=== PATIENT | female | born 1990 | race Caucasian/White ===

== ENCOUNTER 2024-02-25 00:36 | Emergency (ER) | payer OTHER, SELFPAY ==
--- NOTE | ~2024-02-25 | CT_ITS ---
EXAMINATION: CT HEAD WITHOUT CONTRAST CT CERVICAL SPINE WITHOUT CONTRAST CLINICAL INFORMATION: Trauma. Pain. COMPARISON: None. TECHNIQUE: Contiguous axial imaging was performed through the head and cervical spine without intravenous administration of contrast. Sagittal and coronal reformatted images also obtained. This CT examination was performed using dose optimization techniques as appropriate, variously including the following: *Automated exposure control *Adjustment of mA and/or kV according to patient size (this includes techniques or standardized protocols for targeted exams where dose is matched to indication/reason for exam; i.e. extremities or head) *Use of iterative reconstruction technique DLP: 1347 mGy-cm FINDINGS: The lateral, third and fourth ventricles are normally outlined. The cortical sulci and basal cisterns are normally outlined as well. There is no acute territorial defect, hemorrhage or midline shift. There is a partially empty sella. Calvarium/scalp: Intact. Maxillofacial sinuses and mastoids: Clear as visualized. Cervical spine: The alignment is normal. There is mild C6-7 degenerative change with osteophyte formation. Spinal canal and neuroforamen are patent. The bone mineralization is normal. There is no fracture. The soft tissues are unremarkable. CT/CT cervical spine wo IV con IMPRESSION: 1. No acute intracranial pathology. 2. No acute cervical spine abnormality. Electronically signed by: Andrew Kothari MD 02/25/2024 03:01 AM [facility]
--- NOTE | ~2024-02-25 | CT_ITS ---
EXAMINATION: CT HEAD WITHOUT CONTRAST CT CERVICAL SPINE WITHOUT CONTRAST CLINICAL INFORMATION: Trauma. Pain. COMPARISON: None. TECHNIQUE: Contiguous axial imaging was performed through the head and cervical spine without intravenous administration of contrast. Sagittal and coronal reformatted images also obtained. This CT examination was performed using dose optimization techniques as appropriate, variously including the following: *Automated exposure control *Adjustment of mA and/or kV according to patient size (this includes techniques or standardized protocols for targeted exams where dose is matched to indication/reason for exam; i.e. extremities or head) *Use of iterative reconstruction technique DLP: 1347 mGy-cm FINDINGS: The lateral, third and fourth ventricles are normally outlined. The cortical sulci and basal cisterns are normally outlined as well. There is no acute territorial defect, hemorrhage or midline shift. There is a partially empty sella. Calvarium/scalp: Intact. Maxillofacial sinuses and mastoids: Clear as visualized. Cervical spine: The alignment is normal. There is mild C6-7 degenerative change with osteophyte formation. Spinal canal and neuroforamen are patent. The bone mineralization is normal. There is no fracture. The soft tissues are unremarkable. CT/CT head/brain wo IV con IMPRESSION: 1. No acute intracranial pathology. 2. No acute cervical spine abnormality. Electronically signed by: Andrew Kothari MD 02/25/2024 03:01 AM [facility]
[2024-02-25 00:44] VITALS: BP 138/96; PULSE 101; RESP 16; TEMP 36.5; O2SAT 97
[2024-02-25 00:47] VITALS: BMI 34.5
[2024-02-25] MEDS: Lidocaine/Epineph/Tetracaine 3 ML GEL.PF.APP TOPICAL (00:58)
--- NOTE | 2024-02-25 01:06 | PC.NURSE ---
Pt continuing to manipulate c-collar with removal. Lac to posterior head cleansed. Much smaller lac noted than previously stated by EMS. LET applied. Bleeding controlled.
--- OUTSIDE RECORDS SUMMARY | 2024-02-25 01:16 | XMS_ITS | Continuity of Care Document ---
Author Organization [facility] Address [address] [place] [address]- Care Team Providers Care Welcome Wagon Host/Hostess Name Role Phone Urmila Li MD Primary Care Physician Encounter [facility] Date(s): 01/08/24 - 02/07/[address] [address]- Encounter Type: Triage Allergies, Adverse Reactions, Alerts Substance Criticality Severity Reaction Reaction Severity Status penicillin Active Medications Alcohol Pads See Instructions, # 200 each, Refills 5, Tot. Refills 5, Maintenance, Use to check blood glucose three times during the day and once at bedtime for management of Type 2 Diabetes (E11.9), 10/30/23 11:12:00 AM EDT, Supply, 160, cm, 10/26/23 5:38:00 EDT, Height, 76.1, kg, 10/26/23 5:38:00 EDT, Dry Weight Start Date: 10/30/23 Stop Date: 04/27/24 Status: Ordered Quantity: 200.0 Unit: each Repeat number: 6 Ambulator BP Monitor and Cuff Ambulator BP Monitor and Cuff, See Instructions, # 1 each, Refills 0, Tot. Refills 0, Maintenance, Use daily to check BP. ICD10: I10, R03.0, 11/11/23 12:45:00 PM EDT, Supply Start Date: 11/11/23 Status: Ordered Quantity: 1.0 Unit: each Repeat number: 1 Indication: Elevated blood-pressure reading, without diagnosis of hypertension atorvastatin 40 mg oral tablet 1 tablet = 40 mg, By Mouth, Daily, # 90 tablet, 5 Refills, Maintenance, 9/5/24 8:47:00 AM EDT, Tablet, [facility] #[id number], Partial fill upon patient request if the prescription is for a schedule II opioid drug., 160, cm, 11/11/23 8:46:00 EDT, Height, 76.1, kg, 10/26/23 5:38:00 EDT, Dry Weight Start Date: 11/12/23 Status: Ordered Quantity: 90.0 Unit: tablet Repeat number: 6 Dexcom G7 Sensor Dexcom G7 Sensor, See Instructions, # 3 each, Refills 11, Tot. Refills 11, Maintenance, Use daily to check sugar. Change every 10 days. ICD10: E11.65 COSME: 99, 11/11/23 10:35:00 AM EDT, PA approved on covermymeds, Supply, 160, cm, 11/11/23 8:46:00 EDT, Height, 76.1, kg, 10/26/23 5:38:00 EDT, Dry Weight Start Date: 11/11/23 Status: Ordered Quantity: 3.0 Unit: each Repeat number: 12 Indication: Type 2 diabetes mellitus without complications famotidine 20 mg oral tablet 20 mg, 1, tablet, By Mouth, 2 times a day, # 60 tablet, Refills 0, Tot. Refills 0, Maintenance, 10/30/23 11:22:00 AM EDT, Route to Pharmacy Electronically, [facility], Partial fill upon patient request if the prescription is for a schedule II opioid drug., 160, cm, 10/26/23 5:38:00 EDT, Height, 76.1, kg, 10/26/23 5:38:00 EDT, Dry Weight Start Date: 10/30/23 Stop Date: 11/29/23 Status: Ordered Quantity: 60.0 Unit: tablet Repeat number: 1 folic acid 1 mg oral tablet 1 mg, By Mouth, Daily, # 30 tablet, Refills 0, Tot. Refills 0, Maintenance, 12/20/22 8:58:00 AM EDT, Route to Pharmacy Electronically, [facility][id number], Partial fill upon patient request if the prescription is for a schedule II opioid drug., 157, cm, 07/20/22 3:25:00 EDT, Height, 85, kg,07/19/22 18:14:00 EDT, Dry Weight Start Date: 12/20/22 Status: Ordered Quantity: 30.0 Unit: tablet Repeat number: 1 Freestyle Lite Lancets See Instructions, # 200 each, Refills 5, Tot. Refills 5, Maintenance, Use to check blood glucose three times during the day and once at bedtime for management of Type 2 Diabetes (E11.9), 10/30/23 11:11:00 AM EDT, Supply, 160, cm, 10/26/23 5:38:00 EDT, Height, 76.1, kg, 10/26/23 5:38:00 EDT, Dry Weight Start Date: 10/30/23 Stop Date: 04/27/24 Status: Ordered Quantity: 200.0 Unit: each Repeat number: 6 Freestyle Lite Monitor See Instructions, # 1 each, Refills 0, Tot. Refills 0, Maintenance, Use to check blood glucose three times during the day and once at bedtime for management of Type 2 Diabetes (E11.9), 10/30/23 11:11:00 AM EDT, Supply, 160, cm, 10/26/23 5:38:00 EDT, Height, 76.1, kg, 10/26/23 5:38:00 EDT, Dry Weight Start Date: 10/30/23 Stop Date: 11/29/23 Status: Ordered Quantity: 1.0 Unit: each Repeat number: 1 Freestyle Lite Test Strips See Instructions, # 200 each, Tot. Refills 5, Maintenance, Use to check blood glucose three times during the day and once at bedtime for management of Type 2 Diabetes (E11.9), 10/30/23 11:11:00 AM EDT, Supply, 160, cm, 10/26/23 5:38:00 EDT, Height, 76.1, kg, 10/26/23 5:38:00 EDT, Dry Weight Start Date: 10/30/23 Stop Date: 11/29/23 Status: Ordered Quantity: 200.0 Unit: each Repeat number: 6 Glucagon Emergency Kit See Instructions, PRN, # 2 each, Refills 3, Tot. Refills 3, Maintenance, Blood Glucose, Use to for correction of blood sugar less than 70 for management of Type 2 Diabetes (E11.9), 10/30/23 11:12:00 AM EDT, Supply, 160, cm, 10/26/23 5:38:00 EDT, Height, 76.1, kg, 10/26/23 5:38:00 EDT, Dry Weight Start Date: 10/30/23 Stop Date: 02/27/24 Status: Ordered Quantity: 2.0 Unit: each Repeat number: 4 Insulin Glargine Solostar Pen 100 units/mL subcutaneous solution = 24 units, Subcutaneous Injection, Daily in AM, # 10 mL, 0 Refills, Maintenance, 10/30/23 12:23:00 PM EDT, [facility], Partial fill upon patient request if the prescription is for a schedule II opioid drug., 160, cm, 10/26/23 5:38:00 EDT, Height, 76.1, kg, 10/26/23 5:38:00 EDT, Dry Weight Start Date: 10/30/23 Status: Ordered Quantity: 10.0 Unit: mL Repeat number: 1 Insulin Lispro KwikPen 100 units/mL injectable solution See Instructions, << Sliding Scale Comments >> 100 - 149 6 units 150 - 199 8 units 200 - 249 10 units 250 - 299 12 units 300 - 349 14 units 350 - 399 16 units Call if less than 70 Call ifgreater than 400 << Sliding Scale Comments >>, # 10 mL, 0 Refills, Maintenance, 10/30/2411:24:00 PM EDT, [facility], Partial fill upon patient request if the prescription isfor a schedule II opioid drug., 160, cm, 10/26/23 5:38:00 EDT, Height, 76.1, kg, 10/26/23 5:38:00 EDT, Dry Weight Start Date: 10/30/23 Status: Ordered Quantity: 10.0 Unit: mL Repeat number: 1 metFORMIN 500 mg oral tablet 1 tablet = 500 mg, By Mouth, Daily, with meals, # 30 tablet, 0 Refills, Maintenance, 07/19/22 9:33:00 PM EDT, Tablet, Partial fill upon patient request if the prescription is for a schedule II opioid drug. Start Date: 07/19/22 Status: Ordered Quantity: 30.0 Unit: tablet Repeat number: 1 naltrexone 50 mg oral tablet 1 tablet = 50 mg, By Mouth, Daily, # 90 tablet, 1 Refills, Maintenance, 11/11/23 9:17:00 AM EDT, Tablet, [facility] #[id number], Partial fill upon patient request if the prescription is for a schedule II opioid drug., 160, cm, 11/11/23 8:46:00 EDT, Height, 76.1, kg, 10/26/23 5:38:00 EDT, Dry Weight Start Date: 11/11/23 Status: Ordered Quantity: 90.0 Unit: tablet Repeat number: 2 Pen [place], 31 G x 5 mm BD Ultra Fine III See Instructions, # 100 each, Refills 5, Tot. Refills 5, Maintenance, Use for administration of Insulin three times during the day and once at bedtime for management of Type 2 Diabetes (E11.9), 10/30/23 11:11:00 AM EDT, Supply, 160, cm, 10/26/23 5:38:00 EDT, Height, 76.1, kg, 10/26/23 5:38:00 EDT, Dry Weight Start Date: 10/30/23 Stop Date: 04/27/24 Status: Ordered Quantity: 100.0 Unit: each Repeat number: 6 Problem List Condition Confirmation Course Effective Dates Status H ealth Status Informant Alcohol use disorder in remission Confirmed Active Hyperlipidemia Confirmed Active Hypertension Confirmed Active Type 2 diabetes mellitus Confirmed Active Social History Social History Type Response Smoking Status Never (less than 100 in lifetime) entered on: 05/19/23 Sex Sex Representation Female (finding) Patient Care team information Care Team Personnel Name: Lidia Fernandez LPN Position: S RN Member Role: Primary Care Nurse Name: Agustina Davis RN Position: S RN Member Role: Primary Care Nurse Name: Norberto Whitney RN Position: S RN Member Role: Primary Care Nurse Name: Kathy Travis RN Position: S RN Member Role: Primary Care Nurse Name: Urmila Li MD Position: S Resident Member Role: PCP Address: [address] [place], [place] [address] Telecom: Name: Holli Spain RN Position: [facility] RN Member Role: Primary Care Nurse Name: Bertha Alfaro RN Position: [facility] RN Member Role: Primary Care Nurse Name: Luz Maria Piña RN Position: [facility] OB RN Member Role: Primary Care Nurse Name: Vera Iglesias RN Position: [facility] RN Member Role: Primary Care Nurse Name: Torrie Velazquez RN Position: [facility] RN Member Role: Primary Care Nurse Care Team Related Persons Name: KATELYN HERRERA Name: KATELYN GAXIOLA Name: ALIYAH COLE Insurance Providers Guarantor name: [facility] Plan Information #: 1 Payer: [facility] Member Number: NA Policy Number: NA Group Number: NA
--- OUTSIDE RECORDS SUMMARY | 2024-02-25 01:16 | XMS_ITS | Continuity of Care Document ---
Author Organization [facility] Address [address] [place] [address]- Care Team Providers Care Sieve Maker Name Role Phone Urmila Li MD Primary Care Physician [phone] Encounter [facility] ACCT R [id number] Date(s): 01/04/24 - 02/03/[address] [address]- Attending Physician: Edna Juan Admitting Physician: AdmEdna meyers Referring Physician: tr ArPolo Encounter Type: Triage Allergies, Adverse Reactions, Alerts [...] Daily, # 90 tablet, 5 Refills, Maintenance, 11/12/23 8:47:00 AM EDT, Tablet, [email or web address] #[id number], Partial fill upon patient request if the [...] 11:22:00 AM EDT, Route to Pharmacy Electronically, [facility], Partial fill upon patient request if [...] 8:58:00 AM EDT, Route to Pharmacy Electronically, [facility] #[id number], Partial fill upon patient request if the [...] 0 Refills, Maintenance, 10/30/23 12:23:00 PM EDT, [facility], Partial fill upon patient [...] mL, 0 Refills, Maintenance, 10/30/2411:24:00 PM EDT, [facility], Partial fill upon patient request if [...] Refills, Maintenance, 11/11/23 9:17:00 AM EDT, Tablet, [facility] #[id number], Partial fill upon patient request if the prescription is for a schedule II opioid drug., 160, cm, 11/11/23 8:46:00 EDT, Height, 76.1, kg, 10/26/23 5:38:00 EDT, Dry Weight Start Date: 11/11/23 Status: Ordered Quantity: 90.0 Unit: tablet Repeat number: 2 Pen [place], 31 G x 5 mm BD Ultra [...] Position: S Resident Member Role: PCP Address: [address] [place] [address] Telecom: Name: Holli Spain RN Position: S RN Member Role: Primary Care Nurse Name: Bertha Alfaro RN Position: S RN Member Role: Primary Care Nurse Name: Luz Maria Piña RN Position: [facility] OB RN Member Role: Primary Care Nurse Name: Vera Iglesias RN Position: S RN Member Role: Primary Care Nurse Name: Torrie Velazquez RN Position: S RN Member Role: Primary Care Nurse Care Team Related Persons Name: KATELYN HERRERA Name: KATELYN GAXIOLA Name: ALIYAH COLE Insurance Providers Guarantor name: [facility] Plan Information #: 1 Payer: [facility] Member Number: NA Policy Number: NA Group Number: NA
--- NOTE | 2024-02-25 01:28 | ED.HEATRA ---
HPI - Head Injury General Chief complaint: Head Injury Stated complaint: Fall H/S Etoh 1 inch Lac Bleeding controled Time Seen by Provider: 02/25/24 01:19 Source: patient Mode of arrival: EMS Limitations: no limitations History of Present Illness ED Provider: HPI Narrative: Patient intoxicated had 1 pt of vodka earlier was walking to the bathroom tripped on her crocs fell in the bath hitting her back of the head to the top bathtub with superficial laceration to the occipital area no other injuries noticed patient is alert oriented x3 at this time no seizures Related Data Allergies Allergy/AdvReac Type Severity Reaction Status Date / Time penicillin V Allergy Unknown Anaphylaxis Verified 02/25/24 00:50 -PolymyxinB Review of Systems Review of Systems: Yes all other systems are reviewed and are negative [facility] Social History Social History Alcohol intake: current Alcohol intake frequency: a few times a month Alcohol type: hard liquor Smoked in Last 30 Days: No Use of substances other than those prescribed or required for medical reasons: Yes Substance Use Type: Marijuana Substance Use Frequency: Weekly Advance Directives: No Advance Directives Information Provided: Yes Do you have a plan to hurt others: No Plan Physical Exam Vital Signs: Vital Signs: Last Vital Signs Temp 98.1 F 02/25/24 03:28 Pulse 88 02/25/24 03:28 Resp 16 02/25/24 03:28 BP 144/85 H 02/25/24 03:28 Pulse Ox 96 02/25/24 03:28 O2 Del Method Room Air 02/25/24 03:28 BMI result Body Mass Index 34.5 Appearance: Alert. Oriented X3. No acute distress. Intoxicated Eyes: PERRLA, No Nystagmus ENT: Pharynx normal. Oral Mucosa moist superficial 0.5 cm laceration of the occipital area Neck: Normal inspection. Neck supple. CVS: Normal heart rate and rhythm. Pulses normal. Respiratory: No respiratory distress. Equal air entry bilateral, no wheezing/rales/rhonchi Abdomen: Soft and nontender. Bowel sounds are present, no mass palpable, no CVA tenderness Skin: Skin warm and dry. Normal skin color. Normal skin turgor. Extremities: No lower extremity edema. No calf tenderness Neuro: Oriented X 3. No motor deficit. No sensory deficit.No cerebellar signs , cranial nerves II-XII intact Medications Administered Discontinued Medications Generic Name Dose Route Start Last Admin Trade Name Erik PRN Reason Stop Dose Admin Lidocaine/Epinephrine/Tetracaine 3 ml 02/25/24 00:52 02/25/24 00:58 Lidocaine/Epineph/Tetracaine 3 Ml Gel.Pf.Lexi TOPICAL 02/25/24 00:53 3 ml ONCE ONE Administration Protocol Medical Decision Making Medical Decision Making [facility] Narrative: 06:00 Patient intoxicated with superficial laceration to the scalp head CT and C-spine CT negative laceration stapled patient's ETOH level was 434 patient has no feeling much better ambulatory in steady gait in the ER on does not want any help for alcoholism will discharge patient home Differential Diagnosis Differential Diagnoses: The differential diagnosis associated with the presentation includes Lab Data [facility] Lab Attestation statement: I reviewed the patient's lab results. 02/25/24 01:25 02/25/24 01:25 Labs: Lab Results 02/25/24 Range/Units 01:25 WBC 5.4 (4.8-10.8) X10*3/uL RBC 3.96 L (4.20-5.50) X10*6/uL Hgb 14.1 (12.0-16.0) g/dl Hct 40.8 (37.0-47.0) % MCV 103.0 H (80.0-98.0) fL MCH 35.6 H (27.0-33.0) pg MCHC 34.6 (31.0-35.0) g/dl RDW 13.0 (11.0-16.0) % Plt Count 209 (160-400) X10*3/uL MPV 9.3 L (9.4-12.3) fL Immature Gran % (Auto) 0.6 H (0.0-0.4) % Neut % (Auto) 29.8 L (45-73) % Lymph % (Auto) 53.0 H (20-40) % Wells % (Auto) 13.5 H (2-11) % Eos % (Auto) 2.2 (0-4) % Baso % (Auto) 0.9 (0-2) % Lymph # (Auto) 2.9 (1.2-4.9) X10*3/uL Wells # (Auto) 0.7 (0.1-1.2) X10*3/uL Eos # (Auto) 0.1 (0.0-0.4) X10*3/uL Baso # (Auto) 0.1 (0.0-0.2) X10*3/uL Abs Immat Gran (auto) 0.03 (0.00-0.03) X10*3/uL Absolute Neuts (auto) 1.6 L (2.0-8.3) x10*3/uL Absolute Nucleated RBC 0.000 (0.0-0.012) X10*3/uL Nucleated RBC % (auto) 0.0 (0.0-0.2) /100WBC Sodium 148 H (135-145) mmol/L Potassium 3.7 (3.3-5.1) mmol/L Chloride 108 (96-108) mmol/L Carbon Dioxide 23 (22-29) mmol/L Anion Gap 21 H (12-20) BUN 16 (9-16) mg/dL Creatinine 0.68 (0.5-1.4) mg/dL Estim Creat Clear Calc 127.6 Estimated GFR > 60 Random Glucose 128 H (60-115) mg/dL Calcium 9.0 (8.4-10.2) mg/dL Beta HCG, Quant < 2 mIU/mL Ethyl Alcohol 434 H* mg/dL Discharge Plan Discharge Clinical Impression: Closed head injury, Alcohol abuse with intoxication Patient Disposition: Home, Self-Care Instructions: Head Injury (ED), Alcohol Intoxication (ED) Additional Instructions: Stop drinking alcohol Care and cautions as advised You had 2 tena placed on the occipital area Staple removal in 7-10 days Print Language: [place] Citizen
[2024-02-25 01:30] LABS: MANUAL DIFF FLAG NO
[2024-02-25 01:34] LABS: Basophils Absolute Auto 0.1 X10*3/uL (0.0-0.2); Basophils Percent Auto 0.9 % (0-2); Eosinophils Absolute Auto 0.1 X10*3/uL (0.0-0.4); Eosinophils Percent Auto 2.2 % (0-4); Hematocrit 40.8 % (37.0-47.0); Hemoglobin 14.1 g/dl (12.0-16.0); Imm Gran Abs Auto 0.03 X10*3/uL (0.00-0.03); Imm Gran Pct Auto 0.6 % (0.0-0.4); Lymphocytes Absolute Auto 2.9 X10*3/uL (1.2-4.9); Mean Corpuscular HGB Conc 34.6 g/dl (31.0-35.0); Mean Corpuscular Hemoglobin 35.6 pg (27.0-33.0); Mean Platelet Volume 9.3 fL (9.4-12.3); Monocytes Absolute Auto 0.7 X10*3/uL (0.1-1.2); Monocytes Percent Auto 13.5 % (2-11); Neutrophils Absolute Auto 1.6 x10*3/uL (2.0-8.3); Neutrophils Percent Auto 29.8 % (45-73); Platelet Count 209 X10*3/uL (160-400); Red Blood Count 3.96 X10*6/uL (4.20-5.50); White Blood Count 5.4 X10*3/uL (4.8-10.8)
[2024-02-25 02:03] LABS: Anion Gap 21 (12-20); Blood Urea Nitrogen 16 mg/dL (9-16); Carbon Dioxide 23 mmol/L (22-29); Chloride 108 mmol/L (96-108); Creatinine Clr Calc Pharmacy 127.6; Estimated Glomerular Filt Rate > 60; Ethanol 434 mg/dL; Glucose Random 128 mg/dL (60-115); HCG Quantitative < 2 mIU/mL; Potassium 3.7 mmol/L (3.3-5.1); Sodium 148 mmol/L (135-145)
[2024-02-25 03:28] VITALS: BP 144/85; PULSE 88; RESP 16; TEMP 36.7; O2SAT 96
[2024-02-25 06:14] VITALS: BP 171/87; PULSE 100; RESP 16; TEMP 36.7; O2SAT 98
--- NOTE | 2024-02-25 06:16 | PC.NURSE ---
This RN only reviewed discharge instructions with pt. pt verbalized understanding, proper education of stable care.
== END 2024-02-25 06:16 | disposition home or self-care (01) ==
PROVIDERS: Emergency Medicine; Emergency Provider Internal Medicine; PCP Pediatrics
DX: F10.120 Alcohol abuse with intoxication, uncomplicated (principal); Y90.8 Blood alcohol level of 240 mg/100 ml or more; S09.90XA Unspecified injury of head, initial encounter; S01.01XA Laceration without foreign body of scalp, initial encounter; W01.198A Fall on same level from slipping, tripping and stumbling with subsequent striking against other object, initial encounter; Y93.89 Activity, other specified; Y92.012 Bathroom of single-family (private) house as the place of occurrence of the external cause; Y99.9 Unspecified external cause status
CPT/HCPCS: 12001; 36415; 70450; 72125; 80048; 80307; 84702; 85025; 99284